=== PATIENT | male | born 1980 | race Caucasian/White ===

== ENCOUNTER 2024-07-24 11:32 | Emergency (ER) | payer OTHER ==
[~2024-07-24] VITALS: Ht 182.9 cm; Wt 85.7 kg
[2024-07-24 12:35] VITALS: BP 142/82
== END 2024-07-24 12:35 | disposition home or self-care (01) ==
LOC: ED 11:32
DX: L30.9 Dermatitis, unspecified (principal); Z79.899 Other long term (current) drug therapy
CPT/HCPCS: 99282

== ENCOUNTER 2024-09-14 14:09 | Emergency (ER) | payer OTHER ==
[~2024-09-14] VITALS: Ht 182.9 cm; Wt 87.3 kg
[~2024-09-14 14:09] MED LIST: COZAAR25 MG PO; METOPROLOL SUCC25 MG PO; MULTI VITAMIN1 EACH PO; OMEPRAZOLE20 MG PO; PANTOPRAZOLE SO20 MG PO; PRASUGREL HCL10 MG PO; PREDNISONE20 MG PO; ROSUVASTATIN CA20 MG PO; TRIAMCINOLONE A15 G3 TOP; VAZALORE81 MG PO
[2024-09-14] MEDS ORDERED: SILVER NITRATE 1 EA SWAB TOP ONE (18:15)
[2024-09-14 18:17] VITALS: BP 139/85
== END 2024-09-14 18:17 | disposition home or self-care (01) ==
LOC: ED 14:09
DX: R04.0 Epistaxis (principal); I10 Essential (primary) hypertension; I25.2 Old myocardial infarction; K21.9 Gastro-esophageal reflux disease without esophagitis; Z79.02 Long term (current) use of antithrombotics/antiplatelets; Z79.82 Long term (current) use of aspirin; Z79.899 Other long term (current) drug therapy; Z88.6 Allergy status to analgesic agent; Z88.0 Allergy status to penicillin
CPT/HCPCS: 30901; 99283